=== PATIENT | female | born 1970 | race Caucasian/White ===

== ENCOUNTER 2022-01-20 15:58 | Emergency (ER) | payer OTHER ==
--- NOTE | 2022-01-20 16:10 | ERPHSYRPT ---
- History of Present Illness Time Seen by Provider: 01/20/22 16:10 Source: patient, family Exam Limitations: no limitations Physician History: This is a right-handed 51-year-old white female who presents to the emergency department with left middle finger laceration that occurred prior to arrival. Patient was cutting open a can of fruit and the edge gave her laceration. It was accidental. Patient's tetanus status is up-to-date. Occurred: just prior to arrival Method of Injury: other (Sharp edge of a can of fruit) Quality: constant, aching (Mild) Severity of Pain-Max: mild Severity of Pain-Current: mild Extremities Pain Location: shoulder: left, 3rd finger: left (Palmar aspect) Modifying Factors: Improves With: movement Associated Symptoms: none Allergies/Adverse Reactions: codeine Allergy (Verified 01/20/22 16:08) esomeprazole [From Nexium] Allergy (Verified 01/20/22 16:08) meperidine [From Demerol] Allergy (Verified 01/20/22 16:08) Nausea Travel Risk - International Travel Have you traveled outside of the country in past 3 weeks: No - Coronavirus Screening Are you exhibiting any of the following symptoms?: No Close contact with a COVID-19 positive Pt in past 14-21 Days: No - Review of Systems Constitutional: No Symptoms Eyes: No Symptoms Ears, Nose, & Throat: No Symptoms Respiratory: No Symptoms Cardiac: No Symptoms Abdominal/Gastrointestinal: No Symptoms Genitourinary Symptoms: No Symptoms Musculoskeletal: Injury (Left hand) Skin: Other (1 cm laceration palmar aspect left hand middle (third) digit) Neurological: No Symptoms Psychological: No Symptoms Endocrine: No Symptoms Hematologic/Lymphatic: No Symptoms Immunological/Allergic: No Symptoms All Other Systems: Reviewed and Negative - Past Medical History Pertinent Past Medical History: Yes - Past Surgical History Past Surgical History: Yes - Nursing Vital Signs Nursing Vital Signs: Initial Vital Signs Temperature 97.8 F 01/20/22 16:11 Pulse Rate 74 01/20/22 16:11 Respiratory Rate 18 01/20/22 16:11 Blood Pressure 135/75 01/20/22 16:11 O2 Sat by Pulse Oximetry 97 01/20/22 16:11 Pain Scale Pain Intensity 1 - Physical Exam General Appearance: no apparent distress, alert, anxiety Eyes, Ears, Nose, Throat Exam: normal ENT inspection, moist mucous membranes Neck Exam: normal inspection, non-tender, supple, full range of motion Cardiovascular/Respiratory Exam: chest non-tender, no respiratory distress Abdominal Exam: non-tender Back Exam: normal inspection, normal range of motion, No CVA tenderness, No vertebral tenderness Shoulder Exam: normal inspection, non-tender, no evidence of injury, normal ROM Elbow/Forearm Exam: normal inspection, non-tender, no evidence of injury, normal ROM Wrist Exam: normal inspection, non-tender, no evidence of injury, normal ROM Hand Exam: normal ROM, laceration (1 cm, well approximated laceration distal lef t hand third digit without bleeding, without foreign body. Neurovascularly intact and no tendon injury) Neuro/Tendon Exam: normal sensation, normal motor functions, normal tendon functions, responds to pain, no evidence tendon injury Mental Status Exam: alert, oriented x 3, cooperative Skin Exam: normal color, warm, dry, laceration (As above) SpO2 Interpretation: normal O2 Delivery: Room Air Procedures - Laceration/Wound Repair Left Distal Volar Finger Time of Procedure: 16:34 Wound Location: Left, hand (Third digit distal palmar aspect laceration) Wound Length (cm): 1 Wound's Depth, Shape: superficial, linear Wound Explored: clean (Evaluation was made in a bloodless field to the base and there is no foreign body noted) Irrigated: Yes Hibiclens Prep: Yes Wound Repaired With: Steri-strips, Dermabond Progress: 01/20/22 16:35 The area was prepped with Hibiclens solution. It was dried and then benzoin was placed around and over the laceration site. There is no active bleeding. This was allowed to dry and Dermabond was placed on the laceration site. Next, 1/2 inch Steri-Strips were applied. A pressure dressing was then applied. There were no complications and the patient taught the procedure well. - Course Nursing assessment & vital signs reviewed: Yes - Progress Progress: improved Counseled pt/family regarding: diagnosis - Departure Departure Disposition: Home Clinical Impression: Finger laceration Condition: Stable Critical Care Time: No Referrals: YEN RIOS DO [Primary Care Provider] - Follow up/PCP as directed Additional Instructions: Keep laceration repair site dry until tomorrow evening. Tomorrow evening you may take off the top pressure dressing and leave the Steri-Strips in place. You may then wash the site thereafter each day. Leave the Steri-Strips in place until the curl up and then may trim them until the Steri-Strips completely fall off on their own in approximately 5 to 7 days. Use Tylenol and ibuprofen for pain control if there are no contraindications for you taking this medication.
[2022-01-20 16:26] VITALS: BP 135/75; PULSE 74; O2SAT 97
== END 2022-01-20 16:50 | disposition home or self-care (01) ==
LOC: ED 15:58
DX: S61.213A Laceration without foreign body of left middle finger without damage to nail, initial encounter (principal); W26.8XXA Contact with other sharp object(s), not elsewhere classified, initial encounter; Y93.G1 Activity, food preparation and clean up
CPT/HCPCS: 12001; 99281